=== PATIENT | female | born 1960 | race Caucasian/White ===

== ENCOUNTER 2025-07-27 08:27 | Day surgery (SDC) | payer OTHER ==
[2025-07-27] MEDS ORDERED: Lactated Ringers 1,000 ML IV ONE (08:38)
[2025-07-27 08:56] VITALS: RESP 16
[2025-07-27] MEDS: Lactated Ringers 1,000 ML IV SCH (09:03)
--- NOTE | 2025-07-27 09:06 | HP ---
HISTORY OF PRESENT ILLNESS: This 64-year-old in the hospital with a small diverticular collection. No pain now. No bloody stools. No change in bowel habits. No new pain. Family history negative for colon cancer. Negative for inflammatory bowel disease. Last colonoscopy 16 years ago. No polyps. PAST MEDICAL HISTORY: Hypertension. Has had some diverticular disease, arthritis, hypothyroidism, some heartburn in the past. HOME MEDICATIONS: Pantoprazole, metronidazole, lisinopril, levothyroxine, hydrochlorothiazide, and vitamin D3. ALLERGIES: No known drug allergies. PAST SURGICAL HISTORY: She has had colonoscopy, had a laparoscopy for some uterine polyps in the past, had tonsillectomy in the past, had D and C in the past. SOCIAL HISTORY: Smoker. Occasional alcohol use. FAMILY HISTORY: Negative for colon cancer or IBD. REVIEW OF SYSTEMS: Twelve systems reviewed. No chest pain or palpitations. All other systems negative or noncontributory as above and per preadmission questionnaire. PHYSICAL EXAMINATION: GENERAL: No acute distress. VITAL SIGNS: Height 5 feet 4 inches, BMI 26.61. HEENT: Sclerae nonicteric. Mucous membranes moist. Extraocular movements intact. NECK: No JVD. CARDIOVASCULAR: Regular rate and rhythm. RESPIRATORY: Equal excursion, nonlabored breathing. ABDOMEN: Soft. RECTAL: Deferred until time of endoscopy. SKIN: Dry. EXTREMITIES: No cyanosis or edema. NEUROLOGIC: Alert and oriented. PSYCHIATRIC: Appropriate mood and affect. ASSESSMENT: History of diverticular disease. Had a small collection with pain. No pain now. She needs a colonoscopy for evaluation to evaluate for polyps, colitis, or other etiology. Shown the risk sheet. Explained the procedure in detail, but not limited to bleeding, infection; risk of bowel injury, perforation, risk of incomplete exam possibly requiring barium enema, risk of missed diagnosis possible need for other procedures or referrals. Risk of anesthesia or sedation. Risk of bowel prep, but not limited to. Otherwise, we will proceed with colonoscopy as an outpatient under MAC anesthesia. Continue medication for hypertension, thyroid disease, and arthritis. Patient will follow up with her primary regarding her ovary and they will decide if she needs gynecology involvement regarding that.
[2025-07-27] MEDS ORDERED: propofoL IV ONE ×2 (10:29→11:03)
[2025-07-27] MEDS ORDERED: ROBINUL ONE (10:56)
[2025-07-27] MEDS ORDERED: Ephedrine Sulfate 50 MG/ML ONE (11:07)
[2025-07-27 12:05] VITALS: TEMP 97.5
[2025-07-27 12:23] VITALS: BP 124/71; PULSE 85; O2SAT 99
--- NOTE | 2025-07-28 09:48 | OP ---
SURGERY DATE/TIME: 07/27/2025 [id number] PREOPERATIVE DIAGNOSIS: Diverticulitis in the past, needs followup colonoscopy. POSTOPERATIVE DIAGNOSES: 1) Diverticulosis majority of left colon. 2) Multiple polyps ascending colon, transverse colon, descending colon, sigmoid colon, and rectum. 3) Fair bowel prep. 4) Withdrawal time approximately 20 minutes. 5) ASA class 2. PROCEDURE: 1) Colonoscopy to cecum with hot snare polypectomy ascending colon polyps 4 to 6 mm in range, 3 polyps removed with hot snare polypectomy, hot biopsy piecemeal polypectomy 3.5 mm ascending colon polyp. 2) Hot biopsy polypectomy 3 mm polyp. 3) Hot snare polypectomy transverse colon polyp. 4) Hot snare polypectomy descending colon polyp. 5) Hot snare polypectomy of pedunculated polyp approximately 1.5 cm at least with ink spot tattooing location. 6) Hot biopsy polypectomy 2 small proximal rectal polyps. 7) Hot snare polypectomy another 5 mm distal rectal polyp. SURGEON: Kendall Iqbal MD ANESTHESIA: MAC. ESTIMATED BLOOD LOSS: Minimal. INDICATIONS: Consent obtained. DESCRIPTION OF PROCEDURE AND FINDINGS: Patient taken to the endoscopy suite. MAC anesthesia induced. After official time-out and no disagreement with planned procedure, digital rectal exam did not reveal any rectal masses. Videocolonoscope was inserted and passed up through a tortuous sigmoid, descending, transverse, and ascending colon around with external pressure to the cecum. Appendiceal orifice and valve well visualized and photo documented. There were 3 polyps ranging from 4 to 6 mm or so in the ascending colon removed with hot snare polypectomy. Another smaller one that was about 3.5 mm removed with hot biopsy polypectomy in piecemeal polypectomy fashion. The scope pulled back into transverse colon. Another polyp was removed with hot snare polypectomy. Another small polyp was removed about 3 mm in size, removed with hot biopsy polypectomy. The scope was pulled back around descending colon. Another polyp was removed with hot snare polypectomy and brief burst of cautery. The patient had diverticulosis transverse, descending, sigmoid colon. There was at least a 1.5 cm polyp on a stalk in the sigmoid colon that was removed with hot snare polypectomy. It appeared to be removed in total. An ink spot tattoo 1 mL in the general location, could not get the angle to do right at the base itself with pedunculation in the general area, put 1 mL of blue dye to claudia location. The scope was carefully withdrawn back. Proximal rectum had a couple of small polyps removed with hot biopsy polypectomy. These might have been hyperplastic in nature. The scope pulled back to the distal rectum. Another 5 mm polyp was removed with hot snare polypectomy and brief burst of cautery. Removed in total. The scope was withdrawn. The patient tolerated the procedure well. There were no immediate complications.
== END 2025-07-27 12:31 | disposition home or self-care (01) ==
LOC: SDC 08:27
PROVIDERS: ATTEND Surgery
DX: D12.7 Benign neoplasm of rectosigmoid junction (principal); D12.2 Benign neoplasm of ascending colon; D12.4 Benign neoplasm of descending colon; D12.5 Benign neoplasm of sigmoid colon; D12.3 Benign neoplasm of transverse colon; K57.92 Diverticulitis of intestine, part unspecified, without perforation or abscess without bleeding; K57.30 Diverticulosis of large intestine without perforation or abscess without bleeding